=== PATIENT | female | born 1955 | race Caucasian/White ===

== ENCOUNTER 2016-07-10 13:21 | Emergency (ER) | payer OTHER, MEDICARE ==
[~2016-07-10] VITALS: Ht 152.4 cm; Wt 44.5 kg
[~2016-07-10 13:21] MED LIST: BACL10TA PO; BUSP15 PO; CLON.5 PO; DICL75TA5 PO; DULO30CA2 PO; FLUO-191 PO; GABA-531 PO; GEMF600T3 PO; HYDR-3705 PO
[2016-07-10 13:22] VITALS: BP 101/69
== END 2016-07-10 15:38 | disposition left against medical advice (07) ==
LOC: EMS 13:23
DX: M54.5 Low back pain (principal); Z53.21 Procedure and treatment not carried out due to patient leaving prior to being seen by health care provider

== ENCOUNTER 2016-07-21 13:11 | Emergency (ER) | payer MEDICARE, OTHER ==
[~2016-07-21] VITALS: Ht 152.4 cm; Wt 44.5 kg
[2016-07-21 15:04] VITALS: BP 108/64
[2016-07-21] MEDS ORDERED: KETOROLAC TROMETHAMINE 30 MG/ML VIAL IM ONE (15:15)
[2016-07-21] MEDS ORDERED: HYDROCODONE/ACETAMINOPHEN 5-325 MG TABLET PO ONE (15:15)
[2016-07-21] MEDS ORDERED: KETOROLAC TROMETHAMINE 60 MG/2 ML VIAL IM ONE (15:15)
== END 2016-07-21 16:40 | disposition left against medical advice (07) ==
LOC: EMS 13:12
DX: M54.41 Lumbago with sciatica, right side (principal); E78.00 Pure hypercholesterolemia, unspecified; F17.210 Nicotine dependence, cigarettes, uncomplicated; F19.90 Other psychoactive substance use, unspecified, uncomplicated
CPT/HCPCS: 96372; 99283; J1885